=== PATIENT | female | born 1980 | race Two or more races ===

== ENCOUNTER 2019-04-01 17:12 | Emergency (ER) | payer OTHER, MEDICAID ==
[~2019-04-01] VITALS: Ht 160 cm; Wt 82.6 kg
[2019-04-01 17:20] VITALS: Ht 160 cm; Wt 82.6 kg
[2019-04-01 19:03] VITALS: BP 115/61
== END 2019-04-01 19:04 | disposition short-term general hospital (02) ==
LOC: ED 17:12
DX: O9A.213 Injury, poisoning and certain other consequences of external causes complicating pregnancy, third trimester (principal); S39.91XA Unspecified injury of abdomen, initial encounter; M54.5 Low back pain; Z3A.33 33 weeks gestation of pregnancy; V43.62XA Car passenger injured in collision with other type car in traffic accident, initial encounter; Y93.89 Activity, other specified; Y92.488 Other paved roadways as the place of occurrence of the external cause; Y99.8 Other external cause status